=== PATIENT | female | born 2000 | race Caucasian/White ===

== ENCOUNTER 2022-07-29 22:28 | Emergency (ER) | payer OTHER ==
[~2022-07-29] VITALS: Ht 172.7 cm; Wt 62.6 kg
[2022-07-29 22:59] VITALS: BP 113/76
--- NOTE | 2022-07-29 23:05 | NUR ---
Patient stated right ear ache started 6 hrs ago and worsened two hours ago.
--- NOTE | 2022-07-29 23:06 | NUR ---
Patient ambulated with strong gait to room 5. Patient on monitor, A/Ox4, chest rise and fall symmetrical, no s/s of distress.
--- NOTE | 2022-07-29 23:17 | NUR ---
PATIENT AMBULATED TO WITH STEADY GAIT
--- NOTE | 2022-07-29 23:30 | NUR ---
[facility] BILLINGS AT BEDSIDE
--- NOTE | 2022-07-29 23:36 | NUR ---
20/ BIB SELF C/C 06/29 RIGHT SIDED EAR PAIN X2HRS AGO. PER PATIENT SHE FEELS PAIN AND TENDERNESS IN THE AREA. DENIES DRAINAGE. +DRY COUGH AND CONGESTION. +SORE THROAT. LMP 07/12 DENIES PMHX, RX, ALLERGIES
[2022-07-29] MEDS ORDERED: AMOX1TAB8 PO (23:42)
[2022-07-29 23:57] VITALS: BP 110/70
--- NOTE | 2022-07-29 23:57 | NUR ---
Patient discharged with v/s stable. Written and verbal after care instructions given and explained. Patient alert, oriented and verbalized understanding of instructions. Ambulatory with steady gait. All questions addressed prior to discharge. ID band removed. Patient advised to follow up with PMD. Rx of AMOXICILLIN/POTASSIUM given. Patient educated on indication of medication including possible reaction and side effects. Opportunity to ask questions provided and answered.
== END 2022-07-29 23:57 | disposition home or self-care (01) ==
LOC: MED 22:28
DX: H66.91 Otitis media, unspecified, right ear (principal)
CPT/HCPCS: 81002; 81025; 99283

== ENCOUNTER 2022-09-13 14:11 | Emergency (ER) | payer OTHER ==
[~2022-09-13] VITALS: Ht 14.7 cm; Wt 63.5 kg
[~2022-09-13 14:11] MED LIST: AMOX1TAB8 PO
[2022-09-13 14:15] VITALS: BP 112/60
[2022-09-13] MEDS ORDERED: KETOROLAC 15 MG/ML VIAL IVP ONE (15:05)
[2022-09-13] MEDS ORDERED: ONDANSETRON 4 MG/2 ML VIAL IVP ONE (15:05)
[2022-09-13 15:27] LABS: BASOPHILS # (AUTO) 0.1 K/uL (0.00-0.22); BASOPHILS % (AUTO) 0.7 % (0.0-2.0); EOSINOPHILS % (AUTO) 0.3 % (0.0-4.0); HEMATOCRIT 36.8 % (36-48); HEMOGLOBIN 12.5 g/dL (12.0-16.0); LYMPHOCYTES # (AUTO) 1.2 K/uL (2.5-16.5); LYMPHOCYTES % (AUTO) 13.1 % (20.5-51.1); MEAN CORPUSCULAR HEMOGLOBIN 32 pg (27-31); MEAN CORPUSCULAR HGB CONC 34 g/dL (33-37); MEAN CORPUSCULAR VOLUME 94.3 fL (80-94); MONOCYTES # (AUTO) 0.5 K/uL (0.8-1.0); MONOCYTES % (AUTO) 5.3 % (1.7-9.3); NEUTROPHILS # (AUTO) 7.2 K/uL (1.8-7.7); NEUTROPHILS % (AUTO) 80.6 % (42.2-75.2); PLATELET COUNT (AUTO) 250 K/uL (140-450); RED CELL DISTRIBUTION WIDTH 13.4 % (11.6-13.7); WHITE BLOOD COUNT (AUTO) 8.9 K/uL (4.5-11.0)
--- NOTE | 2022-09-13 15:30 | NUR ---
PT WALKED TO ROOM 1 WITH CO OF N/V/D AND ABD PAIN. PT WAS EXAMINED BY DR. SWEENEY. PT WAS MEDICATED WITH TORADOL AND ZOFRAN IVP.
[2022-09-13 15:40] LABS: ALBUMIN 3.7 g/dL (3.4-5.0); ANION GAP 10.5 (8-16); CARBON DIOXIDE 27.9 mmol/L (21-32); CREATININE 0.8 mg/dL (0.6-1.3); POTASSIUM 3.4 mmol/L (3.5-5.1); TOTAL BILIRUBIN 0.4 mg/dL (0.0-1.0)
[2022-09-13 16:05] LABS: APPEARANCE,URINE CLEAR (CLEAR); BILIRUBIN,URINE NEGATIVE (NEGATIVE); BLOOD, URINE 3+ (NEGATIVE); COLOR,URINE YELLOW (YELLOW); LEUKOCYTE ESTERASE ,URINE NEGATIVE (NEGATIVE); NITRITE, URINE NEGATIVE (NEGATIVE); PH,URINE 8.5 (5.0-9.0); UGLUCOSE NEGATIVE (NEGATIVE)
[2022-09-13] MEDS ORDERED: NACL 0.9% 1,000 ML IV ONE (16:15)
--- NOTE | 2022-09-13 16:31 | NUR ---
URINE SAMPLE SENT TO LAB. PELVIC EXAM SETUP DONE FOR PA.
[2022-09-13 16:32] LABS: RBC,URINE 0-5 /HPF (0-5); WBC,URINE 0-5 /HPF (0-5)
[2022-09-13 16:33] LABS: TRICHOMONAS,URINE None Seen /HPF (None Seen); YEAST,URINE None Seen /HPF (None Seen)
[2022-09-13] MEDS ORDERED: AMOX1TAB8 PO (17:44)
[2022-09-13] MEDS ORDERED: NAPR-54 PO (17:44)
[2022-09-13] MEDS ORDERED: ACET-8905 PO (17:44)
--- NOTE | 2022-09-13 18:04 | NUR ---
Patient discharged with v/s stable. Written and verbal after care instructions given and explained. Patient alert, oriented and verbalized understanding of instructions. Ambulatory with steady gait. All questions addressed prior to discharge. ID band removed. Patient advised to follow up with PMD. Rx of HYDROCODONE, AMOXICILLIN/POTASSIUM CLAV AND NAPROXEN given. Patient educated on indication of medication including possible reaction and side effects. Opportunity to ask questions provided and answered.
[2022-09-13 18:05] VITALS: BP 114/75
== END 2022-09-13 18:05 | disposition home or self-care (01) ==
LOC: MED 14:11
DX: S61.452A Open bite of left hand, initial encounter (principal); N94.6 Dysmenorrhea, unspecified; R11.2 Nausea with vomiting, unspecified; Z79.899 Other long term (current) drug therapy; W54.0XXA Bitten by dog, initial encounter; Y93.89 Activity, other specified; Y92.89 Other specified places as the place of occurrence of the external cause; Y99.8 Other external cause status
CPT/HCPCS: 36415; 76856; 80053; 81001; 81025; 83690; 85025; 87491; 90471; 90715; 93976; 96361; 96374; 96375; 99284; J1885; J2405; Q0092

== ENCOUNTER 2022-12-30 14:20 | Emergency (ER) | payer OTHER ==
[~2022-12-30] VITALS: Ht 172.7 cm; Wt 63.5 kg
[~2022-12-30 14:20] MED LIST changes: +ACET-8905 PO; +NAPR-54 PO
[2022-12-30 15:27] VITALS: BP 110/67
[2022-12-30] MEDS ORDERED: NACL 0.9% 1,000 ML IV ONE (15:45)
[2022-12-30] MEDS ORDERED: KETOROLAC 30 MG/ML VIAL IVP ONE (15:45)
[2022-12-30 15:57] LABS: APPEARANCE,URINE CLEAR (CLEAR); BILIRUBIN,URINE NEGATIVE (NEGATIVE); BLOOD, URINE 2+ (NEGATIVE); COLOR,URINE YELLOW (YELLOW); LEUKOCYTE ESTERASE ,URINE TRACE (NEGATIVE); NITRITE, URINE NEGATIVE (NEGATIVE); PH,URINE 8.5 (5.0-9.0); UGLUCOSE NEGATIVE (NEGATIVE)
[2022-12-30 16:06] LABS: BASOPHILS % (AUTO) 0.2 % (0.0-2.0); EOSINOPHILS % (AUTO) 0.2 % (0.0-4.0); HEMATOCRIT 37.2 % (36-48); HEMOGLOBIN 12.3 g/dL (12.0-16.0); LYMPHOCYTES # (AUTO) 0.7 K/uL (2.5-16.5); LYMPHOCYTES % (AUTO) 5.8 % (20.5-51.1); MEAN CORPUSCULAR HEMOGLOBIN 32 pg (27-31); MEAN CORPUSCULAR HGB CONC 33 g/dL (33-37); MEAN CORPUSCULAR VOLUME 95.2 fL (80-94); MONOCYTES # (AUTO) 0.3 K/uL (0.8-1.0); MONOCYTES % (AUTO) 2.5 % (1.7-9.3); NEUTROPHILS # (AUTO) 10.9 K/uL (1.8-7.7); NEUTROPHILS % (AUTO) 91.3 % (42.2-75.2); PLATELET COUNT (AUTO) 279 K/uL (140-450); RED BLOOD CELL COUNT(AUTO) 3.91 MIL/uL (4.20-5.40); RED CELL DISTRIBUTION WIDTH 12.6 % (11.6-13.7)
[2022-12-30 16:26] LABS: RBC,URINE 11-20 (MOD) /HPF (0-5)
[2022-12-30 16:37] LABS: ALBUMIN 4.2 g/dL (3.4-5.0); ANION GAP 15.2 (8-16); CARBON DIOXIDE 23.4 mmol/L (21-32); CREATININE 0.8 mg/dL (0.6-1.3); POTASSIUM 3.6 mmol/L (3.5-5.1); TOTAL BILIRUBIN 0.9 mg/dL (0.0-1.0)
[2022-12-30] MEDS ORDERED: ONDA8TAB87 PO (17:02)
[2022-12-30] MEDS ORDERED: CIPR500T4 PO (17:02)
--- NOTE | 2022-12-30 18:07 | NUR ---
Patient discharged with v/s stable. Written and verbal after care instructions given and explained. Patient alert, oriented and verbalized understanding of instructions. Ambulatory with steady gait. All questions addressed prior to discharge. ID band removed. Patient advised to follow up with PMD. Rx of CIPRO, ZOFRAN given. Patient educated on indication of medication including possible reaction and side effects. Opportunity to ask questions provided and answered.
== END 2022-12-30 18:07 | disposition home or self-care (01) ==
LOC: MED 14:20
DX: R55 Syncope and collapse (principal); N39.0 Urinary tract infection, site not specified; Z79.891 Long term (current) use of opiate analgesic; Z79.2 Long term (current) use of antibiotics; Z79.1 Long term (current) use of non-steroidal anti-inflammatories (NSAID)
CPT/HCPCS: 36415; 80053; 81001; 81025; 85025; 87086; 93005; 96361; 96374; 99284; J1885; J7030

== ENCOUNTER 2023-10-25 12:16 | Emergency (ER) | payer OTHER ==
[~2023-10-25] VITALS: Ht 172.7 cm; Wt 60.8 kg
[~2023-10-25 12:16] MED LIST changes: +CIPR500T4 PO; +ONDA8TAB87 PO
[2023-10-25 12:31] VITALS: BP 106/75; PULSE 94; RESP 15; TEMP 98; O2SAT 99
[2023-10-25 13:00] VITALS: O2SAT 99
[2023-10-25 14:47] LABS: BASOPHILS # (AUTO) 0.1 K/uL (0.00-0.22); BASOPHILS % (AUTO) 0.7 % (0.0-2.0); EOSINOPHILS # (AUTO) 0.1 K/uL (0-0.4); EOSINOPHILS % (AUTO) 0.7 % (0.0-4.0); HEMATOCRIT 38.6 % (36-48); LYMPHOCYTES # (AUTO) 2.2 K/uL (2.5-16.5); LYMPHOCYTES % (AUTO) 23.9 % (20.5-51.1); MEAN CORPUSCULAR HEMOGLOBIN 32 pg (27-31); MEAN CORPUSCULAR HGB CONC 34 g/dL (33-37); MEAN CORPUSCULAR VOLUME 94.8 fL (80-94); MONOCYTES # (AUTO) 0.6 K/uL (0.8-1.0); MONOCYTES % (AUTO) 6.8 % (1.7-9.3); NEUTROPHILS # (AUTO) 6.1 K/uL (1.8-7.7); NEUTROPHILS % (AUTO) 67.9 % (42.2-75.2); PLATELET COUNT (AUTO) 345 K/uL (140-450); RED BLOOD CELL COUNT(AUTO) 4.07 MIL/uL (4.20-5.40)
[2023-10-25] MEDS ORDERED: NACL 0.9% 1,000 ML IV ONE (15:30)
[2023-10-25] MEDS ORDERED: KETOROLAC 30 MG/ML VIAL IVP ONE (15:30)
[2023-10-25] MEDS ORDERED: MEDR10TA PO (15:54)
== END 2023-10-25 16:18 | disposition home or self-care (01) ==
LOC: MED 12:16
DX: N93.8 Other specified abnormal uterine and vaginal bleeding (principal); Z79.899 Other long term (current) drug therapy; Z79.1 Long term (current) use of non-steroidal anti-inflammatories (NSAID); Z79.2 Long term (current) use of antibiotics
CPT/HCPCS: 36415; 81002; 81025; 85025; 96361; 96374; 99283; J1885; J7030